=== PATIENT | male | born 1945 | race Caucasian/White ===

== ENCOUNTER 2017-04-21 09:27 | Day surgery (SDC) | payer MEDICARE, OTHER ==
[~2017-04-21 09:27] MED LIST: Metoclopramide 10 MG/2 ML SDV IV PRN; Sodium Chloride 0.9% 1,000 ML IV SCH; Sodium Chloride 0.9% 10 ML Syringe FLUSH PRN
[2017-04-21] MEDS ORDERED: Propofol 200 MG/20 ML SDV ONE (11:20)
--- NOTE | 2017-04-21 14:46 | OR ---
DATE OF OPERATION: 04/21/2017 PREOPERATIVE DIAGNOSES: Surveillance colonoscopy, prior history of polyps. POSTOPERATIVE DIAGNOSES: 1. Rectal polyp. 2. Ascending colon lesion. OPERATION: Surveillance colonoscopy with biopsies and polypectomy. COMPLICATIONS: None. DRAINS: None. SPECIMENS: 1. Ascending colon biopsy. 2. Rectal polyp. ESTIMATED BLOOD LOSS: Minimal. ANESTHESIA: General propofol anesthesia. INDICATION: Mr. Quezada is a 71-year-old gentleman who is here for a surveillance colonoscopy. He does have a prior history of polyps and has been getting colonoscopies every 5 years. The above-mentioned procedure was explained. The risks, benefits, complications were explained. Patient understood and agreed and was brought to the operating room. DESCRIPTION OF PROCEDURE: The patient was brought to the operating room, placed in a left lateral decubitus position on the operating room table. Satisfactory general propofol anesthesia was administered. We began by performing a rectal examination which was within normal limits. I then placed the endoscope by finger introduction into the rectum and subsequently advanced to the level of the cecum. This was easily accomplished. The prep was good and the quality of the images were good. We then carefully evaluated the mucosa on withdrawal. The cecum was identified by the appendiceal orifice, the cecal strap, and ileocecal valve. Careful evaluation of the mucosa was performed on withdrawal, and this showed an area of indurated appearing mucosa just distal to the ileocecal valve in the ascending colon. This area was biopsied multiple times. The remainder of the ascending colon was within normal limits. Next, careful withdrawal of the endoscope revealed a few patchy diverticula in the sigmoid colon, these were minimal, however, on retroflexion in the rectum, there was less than half a centimeter polyp which was semi-pedunculated. This was removed with simple cold biopsy polypectomy. Hemostasis was secured with monopolar electrocautery and appeared satisfactory. The remainder of the colon was within normal limits. There was no neoplasia, no other polyps, no other diverticula, and no telangiectasias. The colon was then decompressed and the endoscope was withdrawn. Patient tolerated the procedure well. There were no complications. Instrument count was correct. The patient was woken in the OR and taken to PACU for recovery. Recommend followup colonoscopy in 5 years. MARILEE/BLANQUITA /[id number]
== END 2017-04-21 12:35 | disposition home or self-care (01) ==
LOC: LB.SDS 09:27
PROVIDERS: ATTEND Surgery
DX: Z12.11 Encounter for screening for malignant neoplasm of colon (principal); D12.2 Benign neoplasm of ascending colon; K62.1 Rectal polyp; Z86.010 Personal history of colon polyps; K57.30 Diverticulosis of large intestine without perforation or abscess without bleeding; Z79.899 Other long term (current) drug therapy
CPT/HCPCS: 45380; 88305; J2704; J7040

== ENCOUNTER 2023-07-24 08:27 | Day surgery (SDC) | payer MEDICARE ==
[~2023-07-24 08:27] MED LIST changes: -Sodium Chloride 0.9% 1,000 ML IV SCH; -Sodium Chloride 0.9% 10 ML Syringe FLUSH PRN
[2023-07-24] MEDS: Sodium Chloride 0.9% 1,000 ML IV SCH (08:52)
[2023-07-24] MEDS ORDERED: Propofol 200 MG/20 ML SDV ONE (11:00)
== END 2023-07-24 11:56 | disposition home or self-care (01) ==
LOC: LB.SDS 08:27
PROVIDERS: ATTEND Surgery
DX: Z12.11 Encounter for screening for malignant neoplasm of colon (principal); D12.0 Benign neoplasm of cecum; D12.2 Benign neoplasm of ascending colon; Z80.0 Family history of malignant neoplasm of digestive organs
CPT/HCPCS: 88305; J2704; J7030